=== PATIENT | male | born 1970 | race Caucasian/White ===

== ENCOUNTER → 2023-11-14 07:09 | Outpatient (CLI) | payer OTHER, SELFPAY ==
[2023-11-14 07:51] LABS: Add Manual Diff / Slide Review NO; Basophils Absolute Auto 0 /uL (0-100); Basophils Percent Auto 0.9 % (0-2); Eosinophils Absolute Auto 100 /uL (0-450); Eosinophils Percent Auto 2.3 % (2-4); Hematocrit 42.8 % (41-53); Hemoglobin 14.9 g/dL (13.5-17.5); Lymphocytes Absolute Auto 1300 /uL (1100-4500); Lymphocytes Percent Auto 34.6 % (25-40); Mean Corpuscular HGB Conc 34.9 % (30-36); Mean Corpuscular Hemoglobin 32.6 PG (26-34); Mean Corpuscular Volume 93.4 fL (80-100); Monocytes Absolute Auto 400 /uL (0-900); Monocytes Percent Auto 10.8 % (3-14); Neutrophils Absolute Auto 2000 /uL (1500-7000); Neutrophils Percent Auto 51.4 % (50-75); Platelet Count 182 X10^3/uL (150-400); Red Blood Cell Count 4.58 X10^6/uL (4.5-5.9); Red Cell Distribution Width 12.2 % (11.6-14.8); White Blood Cell Count 3.8 X10^3/uL (4.5-11.0)
[2023-11-14 08:26] LABS: Alanine Aminotransferase 26 IU/L (<50); Albumin 4.1 g/dL (3.5-5.0); Albumin Globulin Ratio 1.4 (1.0-2.8); Alkaline Phosphatase 43 U/L (38-126); Aspartate Aminotransferase 32 IU/L (17-59); BUN Creatinine Ratio 18.4 (6-22); Blood Urea Nitrogen 21 mg/dL (9-20); Calcium 9.2 mg/dL (8.4-10.2); Carbon Dioxide 28 mmol/L (22-32); Chloride 103 mmol/L (98-107); Cholesterol 172 mg/dL (140-199); Estimated Glomerular Filt Rate > 60 mL/min (>60); Glucose 94 mg/dL (70-100); HDL Cholesterol 47 mg/dL (40-60); HEMOLYSIS < 15 (0-50); LDL Cholesterol Calculated 107 mg/dL (<100); Potassium 4.2 mmol/L (3.4-5.1); Sodium 140 mmol/L (137-145); Total Protein 7.1 g/dL (6.3-8.2); Triglycerides 90 mg/dL (35-150)
[2023-11-14 08:50] LABS: Prostate Specific Antigen 0.623 ng/mL (0.10-4.00)
== END ==
LOC: LAB 07:12
PROVIDERS: PCP Family Medicine Sports Medicine; Referring Provider Family Medicine Sports Medicine; Visit Provider Family Medicine Sports Medicine
DX: Z00.00 Encounter for general adult medical examination without abnormal findings (principal); Z13.6 Encounter for screening for cardiovascular disorders; Z12.5 Encounter for screening for malignant neoplasm of prostate
CPT/HCPCS: 36415; 80053; 80061; 84153; 85025

== ENCOUNTER 2024-04-14 07:30 | Outpatient (RCR) | payer OTHER, SELFPAY ==
--- NOTE | 2024-03-31 10:19 | PT.OIE ---
Current Diagnoses Benign paroxysmal vertigo, unspecified ear (03/31/24) Visit Care Team Role Provider Type Johny Reddy MD Family Provider Non-Staff Primary Care Provider Specialty: Family Practice Address: [address], [place], [address] Email: Roz Ramírez MD Attending Provider Non-Staff Referring Provider Specialty: [facility] Practice Address: [address], [place], [address] Email: Physical Therapy Initial Evaluation PT-OP-A Visit Information Start: 03/22/24 08:09 Freq: Status: Active Protocol: Document 03/31/24 09:01 MB (Rec: 03/31/24 10:18 MB [id number]) Out-Patient Physical Therapy Visit Information Visit Information Visit Type Initial Evaluation Visit Note [employer] Progress note before 05/01 Visit Start Time 09:01 Visit Stop Time 09:56 Visit Number 1 Evaluation Information Evaluation Date 03/31/24 PT-OP-B Current Condition Start: 03/22/24 08:09 Freq: Status: Active Protocol: Document 03/31/24 09:01 MB (Rec: 03/31/24 10:18 [id number]) Current Condition History of Current Condition Onset Date 04/2023 Current Complaints Light-headedness when looking up and looking up to the right History of Current Condition Last April 2023, pt had a root canal bottom right molar and then they put in a crown October 2023. After the crown , he was walking after the procedure and almost fell to his right, he was so dizzy. He had no pain at the time. He had what he was told was BPPV and he went to urgent care and was given a handout for exercise. He had severe dizziness rolling to the right for a while. He did self- Kristen for the right ear. Now, he gets light-headedness when looking up and up and to the right. Getting up quickly off the couch and off the bed require him to get his bearings. He has not had any other episodes of imbalance. Pt lifts weights. When he goes to lie down to lift, he gets initial dizziness with lying flat. Pt denies: numbness/tingling, vision changes, ear pressure, history of concussion, anemia, weakness, hearing change, sinus/allergy issues, trouble swallowing, B12 deficiency, eye pressure changes, roaring or ringing in the ears, history of whiplash, TMJ problems, headache Pt reports: performance of sit -ups, overhead lifting, vitamin D3, chiropractor treatment for lumbar spine in 2020 and history of LB spasming Pt reports neck stiffness in the morning. Pt sleeps on his right side. Pt sleeps in jesus manuel bed with and kid comes in the bed. Pt reports left nostril feels clogged Treatment Goals Patient/Caregiver Goals To eliminate dizziness and light-headedness when looking up to the right PT-OP-C Subjective Start: 03/22/24 08:09 Freq: Status: Active Protocol: Document 03/31/24 09:01 MB (Rec: 03/31/24 10:18 MB [id number]) OP-PT Subjective Patient Comments Patient Comments See history of current condition Patient Questionnaires Dizziness Handicap Inventory DHI Score 22 DHI Functional Impairment 20 to 39% Impaired (Score 20- 39) Other Questionnaire Name and Score FES score is 6/64, low risk for falling but concerns with tasks related to dizziness ( overhead reach and getting out of chair), so may set goal PT-OP-J Posture/Palpation/Skin Start: 03/22/24 08:09 Freq: Status: Active Protocol: Document 03/31/24 09:01 MB (Rec: 03/31/24 10:18 MB [id number]) Posture Evaluation Comments Posture Comments TMJ opening with more tissue pressure to palpation on left with depression than the right , left C1-2 tight and loosens with minimal manual work, B SCM tension more on the left. Pt is right handed, left posterior cervical tissue is more pronounced than the right PT-OP-K Range of Motion Start: 03/22/24 08:09 Freq: Status: Active Protocol: Document 03/31/24 09:01 MB (Rec: 03/31/24 10:18 MB [id number]) Cervical Spine Range of Motion Cervical Spine Active Testing Position Sitting Flexion 40 Extension 20 Rotation Left 70 Rotation Right 60 ROM Limitations Soft Tissue Tightness PT-OP-M Strength Start: 03/22/24 08:09 Freq: Status: Active Protocol: Document 03/31/24 09:01 MB (Rec: 03/31/24 10:18 [id number]) Shoulder Strength Shoulder Manual Muscle Testing Left Flexion 5 Normal Abduction (C5) 5 Normal Right Flexion 5 Normal Abduction (C5) 5 Normal PT-OP-O Vestibular Start: 03/22/24 08:09 Freq: Status: Active Protocol: Document 03/31/24 09:01 MB (Rec: 03/31/24 10:18 [id number]) Vestibular Assessment Visual Testing Spontaneous Nystagmus Negative Positional Testing [place]-Hallpike Positive Right,Upbeating,< 60 Seconds Comments Vestibular Comments Orthostatic assessment: supine 166/91, 65; standing 132/78, 68; standing 1' 158/69, 63. Upon standing, little spinning dizziness PT-OP-Q Treatments Start: 03/22/24 08:09 Freq: Status: Active Protocol: Document 03/31/24 09:01 MB (Rec: 03/31/24 10:18 [id number]) Neuro Re-Education Treatment Other Activities BPPV assess and treat Comments Right [place]-Hallpike x2 and modified Kristen treatment x2 and dizziness and nystagmus resolved Self-Care/Home Management Treatment Education Patient Education Body Mechanics,Home Exercise Program,Joint Protection, Posture Other Education Ed pt on benefits of making fluids count, decreasing caffeine and increasing non- caffeinated fluid intake, consider electrolytes, proper sleeping position to help with neck tension, BPPV and cervicogenic dizziness handouts, education on how to get on weight bench and perform sit-ups with better awareness of core and less tension in SCM PT-OP-T Assessment and Plan Start: 03/22/24 08:09 Freq: Status: Active Protocol: Document 03/31/24 09:01 MB (Rec: 03/31/24 10:18 [id number]) Physical Therapy Assessment Rehab Potential Rehabilitation Potential Excellent Evaluation Complexity Number of Personal Factors/Comorbidities 1-2 Number of Body Systems Impaired 1-2 Clinical Presentation at Evaluation Evolving Impairments Impairments Balance,Posture,ROM,Soft Tissue Mobility,Vestibular Goals 4 Impairment Evidence of imbalance Review Coordinator Goal (LTG) Pt will perform WNLs on FGA to improve functional balance with exercise and daily life. LTG Duration 5 weeks 3 Impairment Lack of HEP Halfway Goal (LTG) Pt will perform progressive HEP with I including breathing , postural, flexibility, balance and VOR exercises to improve cervical ROM and posture to improve symptoms. LTG Duration 5 weeks 2 Impairment FES 6/64 Halfway Goal (LTG) Pt presents fairly concerned about falling with getting in and out of a chair and reaching overhead and he will report no concern of these after PT treatment to improve functional balance. LTG Duration 5 weeks 1 Impairment DHI 22/100 Review Coordinator Goal (LTG) Pt will present with DHI score of no more than 5/100, reflecting less experience of dizziness and improved function and quality of life. LTG Duration 5 weeks Assessment Summary Assessment Pt is a gentleman presenting with reports of positional vertigo symptoms since dental procedure in October. He went to urgent care and was given handout and performed self- Kristen for right side at home. Spinning dizziness with rolling is better and he con't with dizziness looking up and looking up to the right, as well as when getting up quickly. Orthostatics are positive and BP is high and discussed hydration and less caffeine with patient. Positive [place]-Hallpike for right posterior canalithiasis BPPV and treated with modified Kristen this date and dizziness and nystagmus resolve when re -checked. Pt has postural changes including increased tension left SCM and posterior cervical muscles as well as reduced cervical rotation to the right. He will benefit from manual work and postural training and exercises to improve posture, neck position and in turn, inner ear mobility. VOR is not a primary concern but will check it and balance as needed. Physical Therapy Plan Frequency and Duration Frequency of Treatment 3-4 treatments Duration of treatment (weeks) 5 Plan of Care Start Date 03/31/24 Plan of Care End Date 05/05/24 Therapeutic Interventions Therapeutic Interventions Balance Training,Canalithic Repositioning,Home Exercise Program,Joint Mobilizations, Manual Therapy,Neuromuscular Re-education,Patient/Caregiver Education,Self-Care/Home Management,Soft Tissue Mobilization,Taping, Therapeutic Activities, Therapeutic Exercises, Vestibular Rehabilitation Modalities Cold Pack/Ice Massage Next Visit Focus/Plan Next Note Type Treatment Note Next Visit Plan Buteyko breathing for clogged left nostril, consider FGA and DVA testing, manual work including SCM work and self- treatment, pect and anterior thoracic stretching, thoracic mobility
--- NOTE | 2024-03-31 10:20 | PT.OPPOC ---
Physical, Occupational & Speech Therapy At [facility] Current Diagnoses Benign paroxysmal vertigo, unspecified ear (03/31/24) Visit Care Team Role Provider Type Johny Reddy MD Family Provider Non-Staff Primary Care Provider Specialty: Family Practice Address: [address], [place], [address] Email: Roz Ramírez MD Attending Provider Non-Staff Referring Provider Specialty: [facility] Practice Address: [address], [place], [address] Email: Plan Of Care PT-OP-T Assessment and Plan Start: 03/22/24 08:09 Freq: Status: Active Protocol: Document 03/31/24 09:01 MB (Rec: 03/31/24 10:18 MB [id number]) Physical Therapy Assessment Rehab Potential Rehabilitation Potential Excellent Evaluation Complexity Number of Personal Factors/Comorbidities 1-2 Number of Body Systems Impaired 1-2 Clinical Presentation at Evaluation Evolving Impairments Impairments Balance,Posture,ROM,Soft Tissue Mobility,Vestibular Goals 4 Impairment Evidence of imbalance Usp Goal (LTG) Pt will perform WNLs on FGA to improve functional balance with exercise and daily life. LTG Duration 5 weeks 3 Impairment Lack of HEP Interpreter Translator Goal (LTG) Pt will perform progressive HEP with I including breathing , postural, flexibility, balance and VOR exercises to improve cervical ROM and posture to improve symptoms. LTG Duration 5 weeks 2 Impairment FES 6/64 Interpreter Translator Goal (LTG) Pt presents fairly concerned about falling with getting in and out of a chair and reaching overhead and he will report no concern of these after PT treatment to improve functional balance. LTG Duration 5 weeks 1 Impairment DHI 22/100 Usp Goal (LTG) Pt will present with DHI score of no more than 5/100, reflecting less experience of dizziness and improved function and quality of life. LTG Duration 5 weeks Assessment Summary Assessment Pt is a gentleman presenting with reports of positional vertigo symptoms since dental procedure in October. He went to urgent care and was given handout and performed self- Kristen for right side at home. Spinning dizziness with rolling is better and he con't with dizziness looking up and looking up to the right, as well as when getting up quickly. Orthostatics are positive and BP is high and discussed hydration and less caffeine with patient. Positive [place]-Hallpike for right posterior canalithiasis BPPV and treated with modified Kristen this date and dizziness and nystagmus resolve when re -checked. Pt has postural changes including increased tension left SCM and posterior cervical muscles as well as reduced cervical rotation to the right. He will benefit from manual work and postural training and exercises to improve posture, neck position and in turn, inner ear mobility. VOR is not a primary concern but will check it and balance as needed. Physical Therapy Plan Frequency and Duration Frequency of Treatment 3-4 treatments Duration of treatment (weeks) 5 Plan of Care Start Date 03/31/24 Plan of Care End Date 05/05/24 Therapeutic Interventions Therapeutic Interventions Balance Training,Canalithic Repositioning,Home Exercise Program,Joint Mobilizations, Manual Therapy,Neuromuscular Re-education,Patient/Caregiver Education,Self-Care/Home Management,Soft Tissue Mobilization,Taping, Therapeutic Activities, Therapeutic Exercises, Vestibular Rehabilitation Modalities Cold Pack/Ice Massage Next Visit Focus/Plan Next Note Type Treatment Note Next Visit Plan Buteyko breathing for clogged left nostril, consider FGA and DVA testing, manual work including SCM work and self- treatment, pect and anterior thoracic stretching, thoracic mobility Plan of Care Dates Plan of Care Start Date 03/31/24 Plan of Care End Date 05/05/24 Electronically Signed by: Lucia Maldonado PT 03/31/24 1020 If you are in agreement with this Plan of Care, please return a signed and dated copy. I have reviewed this Plan of Care and certify that the skilled therapy services above are required to meet the patient?s needs. Physician Signature Date Printed Name and Credentials Clinical Instructor Signature Printed Name and Credentials
--- NOTE | 2024-04-07 09:46 | PT.OTN ---
Current Diagnoses Benign paroxysmal vertigo, unspecified ear (04/07/24) Physical Therapy Treatment Note PT-OP-A Visit Information Start: 03/22/24 08:09 Freq: Status: Active Protocol: Document 04/07/24 09:01 MB (Rec: 04/07/24 09:45 MB [id number]) Out-Patient Physical Therapy Visit Information Visit Information Visit Type Treatment Note Visit Note [employer] Progress note before 05/01 Visit Start Time 09:01 Visit Stop Time 09:41 Visit Number 2 Number of CONGRESSIONAL AIDE Visits 0 Evaluation Information Evaluation Date 03/31/24 PT-OP-B Current Condition Start: 03/22/24 08:09 Freq: Status: Active Protocol: Document 03/31/24 09:01 MB (Rec: 03/31/24 10:18 MB [id number]) Current Condition History of Current Condition Onset Date 04/2023 Current Complaints Light-headedness when looking up and looking up to the right History of Current Condition Last April 2023, pt had a root canal bottom right molar and then they put in a crown October 2023. After the crown , he was walking after the procedure and almost fell to his right, he was so dizzy. He had no pain at the time. He had what he was told was BPPV and he went to urgent care and was given a handout for exercise. He had severe dizziness rolling to the right for a while. He did self- Kristen for the right ear. Now, he gets light-headedness when looking up and up and to the right. Getting up quickly off the couch and off the bed require him to get his bearings. He has not had any other episodes of imbalance. Pt lifts weights. When he goes to lie down to lift, he gets initial dizziness with lying flat. Pt denies: numbness/tingling, vision changes, ear pressure, history of concussion, anemia, weakness, hearing change, sinus/allergy issues, trouble swallowing, B12 deficiency, eye pressure changes, roaring or ringing in the ears, history of whiplash, TMJ problems, headache Pt reports: performance of sit -ups, overhead lifting, vitamin D3, chiropractor treatment for lumbar spine in 2020 and history of LB spasming Pt reports neck stiffness in the morning. Pt sleeps on his right side. Pt sleeps in jesus manuel bed with and kid comes in the bed. Pt reports left nostril feels clogged Treatment Goals Patient/Caregiver Goals To eliminate dizziness and light-headedness when looking up to the right PT-OP-C Subjective Start: 03/22/24 08:09 Freq: Status: Active Protocol: Document 04/07/24 09:01 MB (Rec: 04/07/24 09:45 MB [id number]) OP-PT Subjective Patient Comments Patient Comments Pt has slept really well in the last week. He has added 60 -80 oz of water a day. He got a cervical pillow with a cooling effect. He does not have any more dizziness. His neck feels better. PT-OP-J Posture/Palpation/Skin Start: 03/22/24 08:09 Freq: Status: Active Protocol: Document 03/31/24 09:01 MB (Rec: 03/31/24 10:18 MB [id number]) Posture Evaluation Comments Posture Comments TMJ opening with more tissue pressure to palpation on left with depression than the right , left C1-2 tight and loosens with minimal manual work, B SCM tension more on the left. Pt is right handed, left posterior cervical tissue is more pronounced than the right PT-OP-K Range of Motion Start: 03/22/24 08:09 Freq: Status: Active Protocol: Document 03/31/24 09:01 MB (Rec: 03/31/24 10:18 MB [id number]) Cervical Spine Range of Motion Cervical Spine Active Testing Position Sitting Flexion 40 Extension 20 Rotation Left 70 Rotation Right 60 ROM Limitations Soft Tissue Tightness PT-OP-M Strength Start: 03/22/24 08:09 Freq: Status: Active Protocol: Document 03/31/24 09:01 MB (Rec: 03/31/24 10:18 MB [id number]) Shoulder Strength Shoulder Manual Muscle Testing Left Flexion 5 Normal Abduction (C5) 5 Normal Right Flexion 5 Normal Abduction (C5) 5 Normal PT-OP-O Vestibular Start: 03/22/24 08:09 Freq: Status: Active Protocol: Document 03/31/24 09:01 MB (Rec: 03/31/24 10:18 MB [id number]) Vestibular Assessment Visual Testing Spontaneous Nystagmus Negative Positional Testing [place]-Hallpike Positive Right,Upbeating,< 60 Seconds Comments Vestibular Comments Orthostatic assessment: supine 166/91, 65; standing 132/78, 68; standing 1' 158/69, 63. Upon standing, little spinning dizziness PT-OP-Q Treatments Start: 03/22/24 08:09 Freq: Status: Active Protocol: Document 04/07/24 09:01 MB (Rec: 04/07/24 09:45 MB [id number]) Therapeutic Exercises Sitting Exercises Buteyko breathing for blocked nostril Sitting Exercise Name Tried on right nostril and not very helpful Comments Nose appears deviated to the left, pt reports right stuffy nostril Buteyko breathing for stuffy sinuses Comments Performed in sitting today and breathing sounds slightly softer afterwards Standing Exercises Upper cervical isometric Comments Pt tight to the right today and performed and range better afterwards Neuro Re-Education Treatment Other Activities SLS Comments 30 sec on left leg; 1' on right leg and added to HEP Balance activities for gym Comments Slide finger along wall and perform 20' of horizontal head turns x2 and 20' of vertical head turns x2 FGA Comments FGA score is normal at 28/30 and some mild change in balance with horizontal and vertical head turns PT-OP-T Assessment and Plan Start: 03/22/24 08:09 Freq: Status: Active Protocol: Document 04/07/24 09:01 MB (Rec: 04/07/24 09:45 MB [id number]) Physical Therapy Assessment Rehab Potential Rehabilitation Potential Excellent Evaluation Complexity Number of Personal Factors/Comorbidities 1-2 Number of Body Systems Impaired 1-2 Clinical Presentation at Evaluation Evolving Impairments Impairments Balance,Posture,ROM,Soft Tissue Mobility,Vestibular Goals 4 Impairment Evidence of imbalance Churn Operator Margarine Goal (LTG) Pt will perform WNLs on FGA to improve functional balance with exercise and daily life. LTG Duration 5 weeks 3 Impairment Lack of HEP [facility] Goal (LTG) Pt will perform progressive HEP with I including breathing , postural, flexibility, balance and VOR exercises to improve cervical ROM and posture to improve symptoms. LTG Duration 5 weeks 2 Impairment FES 6/64 [facility] Goal (LTG) Pt presents fairly concerned about falling with getting in and out of a chair and reaching overhead and he will report no concern of these after PT treatment to improve functional balance. LTG Duration 5 weeks 1 Impairment DHI 22/100 [facility] Goal (LTG) Pt will present with DHI score of no more than 5/100, reflecting less experience of dizziness and improved function and quality of life. LTG Duration 5 weeks Assessment Summary Assessment Neck range and symptoms are better. Pt appears to have nasal breathing challenges that may be structural. Initiated training today and will see if breathing improves , also added cervical and balance exercises. Physical Therapy Plan Frequency and Duration Frequency of Treatment 3-4 treatments Duration of treatment (weeks) 5 Plan of Care Start Date 03/31/24 Plan of Care End Date 05/05/24 Therapeutic Interventions Therapeutic Interventions Balance Training,Canalithic Repositioning,Home Exercise Program,Joint Mobilizations, Manual Therapy,Neuromuscular Re-education,Patient/Caregiver Education,Self-Care/Home Management,Soft Tissue Mobilization,Taping, Therapeutic Activities, Therapeutic Exercises, Vestibular Rehabilitation Modalities Cold Pack/Ice Massage Next Visit Focus/Plan Next Note Type Treatment Note Next Visit Plan DVA testing, manual work including SCM work and self- treatment, pect and anterior thoracic stretching, thoracic mobility
--- NOTE | 2024-04-14 08:17 | PT.OTN ---
Current Diagnoses Benign paroxysmal vertigo, unspecified ear (04/14/24) Physical Therapy Treatment Note PT-OP-A Visit Information Start: 03/22/24 08:09 Freq: Status: Active Protocol: Document 04/14/24 07:32 MB (Rec: 04/14/24 08:17 MB [id number]) Out-Patient Physical Therapy Visit Information Visit Information Visit Type Treatment Note Visit Note [employer] Visit Start Time 07:32 Visit Stop Time 08:15 Visit Number 43 Number of ECONOMICS TEACHER Visits 0 Evaluation Information Evaluation Date 03/31/24 PT-OP-B Current Condition Start: 03/22/24 08:09 Freq: Status: Active Protocol: Document 03/31/24 09:01 MB (Rec: 03/31/24 10:18 MB [id number]) Current Condition History of Current Condition Onset Date 04/2023 Current Complaints Light-headedness when looking up and looking up to the right History of Current Condition Last April 2023, pt had a root canal bottom right molar and then they put in a crown October 2023. After the crown , he was walking after the procedure and almost fell to his right, he was so dizzy. He had no pain at the time. He had what he was told was BPPV and he went to urgent care and was given a handout for exercise. He had severe dizziness rolling to the right for a while. He did self- Kristen for the right ear. Now, he gets light-headedness when looking up and up and to the right. Getting up quickly off the couch and off the bed require him to get his bearings. He has not had any other episodes of imbalance. Pt lifts weights. When he goes to lie down to lift, he gets initial dizziness with lying flat. Pt denies: numbness/tingling, vision changes, ear pressure, history of concussion, anemia, weakness, hearing change, sinus/allergy issues, trouble swallowing, B12 deficiency, eye pressure changes, roaring or ringing in the ears, history of whiplash, TMJ problems, headache Pt reports: performance of sit -ups, overhead lifting, vitamin D3, chiropractor treatment for lumbar spine in 2020 and history of LB spasming Pt reports neck stiffness in the morning. Pt sleeps on his right side. Pt sleeps in jesus manuel bed with and kid comes in the bed. Pt reports left nostril feels clogged Treatment Goals Patient/Caregiver Goals To eliminate dizziness and light-headedness when looking up to the right PT-OP-C Subjective Start: 03/22/24 08:09 Freq: Status: Active Protocol: Document 04/14/24 07:32 MB (Rec: 04/14/24 08:17 MB [id number]) OP-PT Subjective Patient Comments Patient Comments Pt states that he can tell sleeping out of town and the difference with the pillow. PT-OP-J Posture/Palpation/Skin Start: 03/22/24 08:09 Freq: Status: Active Protocol: Document 03/31/24 09:01 MB (Rec: 03/31/24 10:18 MB [id number]) Posture Evaluation Comments Posture Comments TMJ opening with more tissue pressure to palpation on left with depression than the right , left C1-2 tight and loosens with minimal manual work, B SCM tension more on the left. Pt is right handed, left posterior cervical tissue is more pronounced than the right PT-OP-K Range of Motion Start: 03/22/24 08:09 Freq: Status: Active Protocol: Document 03/31/24 09:01 MB (Rec: 03/31/24 10:18 MB [id number]) Cervical Spine Range of Motion Cervical Spine Active Testing Position Sitting Flexion 40 Extension 20 Rotation Left 70 Rotation Right 60 ROM Limitations Soft Tissue Tightness PT-OP-M Strength Start: 03/22/24 08:09 Freq: Status: Active Protocol: Document 03/31/24 09:01 MB (Rec: 03/31/24 10:18 MB [id number]) Shoulder Strength Shoulder Manual Muscle Testing Left Flexion 5 Normal Abduction (C5) 5 Normal Right Flexion 5 Normal Abduction (C5) 5 Normal PT-OP-O Vestibular Start: 03/22/24 08:09 Freq: Status: Active Protocol: Document 03/31/24 09:01 MB (Rec: 03/31/24 10:18 MB [id number]) Vestibular Assessment Visual Testing Spontaneous Nystagmus Negative Positional Testing Helen-Hallpike Positive Right,Upbeating,< 60 Seconds Comments Vestibular Comments Orthostatic assessment: supine 166/91, 65; standing 132/78, 68; standing 1' 158/69, 63. Upon standing, little spinning dizziness PT-OP-Q Treatments Start: 03/22/24 08:09 Freq: Status: Active Protocol: Document 04/14/24 07:32 MB (Rec: 04/14/24 08:17 MB [id number]) Therapeutic Exercises Supine Exercises Foam roller Supine Exercise Name Many minutes and training with this Comments Thoracic stretching with arms overhead, pect stretch and thoracic mobs Sidelying Exercises Open book Comments B many reps Standing Exercises Anterior neck stretch Comments Gentle stretch Neuro Re-Education Treatment Balance Activities FGA Comments FGA score is 30/30 Vestibular Rehabilitation DVA Comments Focus on letter E second from bottom and performed horizontal head turns with feet apart, Romberg, tandem and tandem with right foot behind is challenging. Performed several minutes to figure out the best exercise for home. Vertical head turns much easier and performed in Romberg, tandem and more challenging with right foot behind PT-OP-T Assessment and Plan Start: 03/22/24 08:09 Freq: Status: Active Protocol: Document 04/14/24 07:32 MB (Rec: 04/14/24 08:17 MB [id number]) Physical Therapy Assessment Rehab Potential Rehabilitation Potential Excellent Evaluation Complexity Number of Personal Factors/Comorbidities 1-2 Number of Body Systems Impaired 1-2 Clinical Presentation at Evaluation Evolving Impairments Impairments Balance,Posture,ROM,Soft Tissue Mobility,Vestibular Goals 4 Impairment Evidence of imbalance Detention Goal (LTG) Pt will perform WNLs on FGA to improve functional balance with exercise and daily life. 04/14/24: FGA score is 30/30 LTG Duration Met 3 Impairment Lack of HEP Detention Goal (LTG) Pt will perform progressive HEP with I including breathing , postural, flexibility, balance and VOR exercises to improve cervical ROM and posture to improve symptoms. 04/14/24: Pt has thoracic mobility, cervical and DVA exercises LTG Duration Met 2 Impairment FES Food Runner Goal (LTG) Pt presents fairly concerned about falling with getting in and out of a chair and reaching overhead and he will report no concern of these after PT treatment to improve functional balance. 04/14/24: Pt no longer has any concerns of falling with any question on questionnaire. LTG Duration Met 1 Impairment DHI 22/100 Detention Goal (LTG) Pt will present with DHI score of no more than 5/100, reflecting less experience of dizziness and improved function and quality of life. 04/14/24: DHI score is 0, surpassed goal LTG Duration Met Assessment Summary Assessment Pt has met or surpassed all PT goals and is ready for d/c. Physical Therapy Plan Frequency and Duration Frequency of Treatment 3-4 treatments Duration of treatment (weeks) 5 Plan of Care Start Date 03/31/24 Plan of Care End Date 05/05/24 Therapeutic Interventions Therapeutic Interventions Balance Training,Canalithic Repositioning,Home Exercise Program,Joint Mobilizations, Manual Therapy,Neuromuscular Re-education,Patient/Caregiver Education,Self-Care/Home Management,Soft Tissue Mobilization,Taping, Therapeutic Activities, Therapeutic Exercises, Vestibular Rehabilitation Modalities Cold Pack/Ice Massage
== END 2024-05-01 09:34 ==
LOC: PHYS 07:30
PROVIDERS: Family Provider Family Medicine Sports Medicine; PCP Family Medicine Sports Medicine; Referring Provider Family Medicine; Visit Provider Family Medicine
DX: H81.10 Benign paroxysmal vertigo, unspecified ear (principal)
CPT/HCPCS: 95992; 97110; 97112; 97162; 97535

== ENCOUNTER → 2024-06-11 11:53 | Outpatient (CLI) | payer OTHER, SELFPAY ==
--- NOTE | 2024-06-11 11:53 | DI.US.S_ITS ---
PROCEDURE: US THYROID INDICATIONS: GLOBUS SENSATION,HOARSENESS,ENLARGED THYROID TECHNIQUE: Real-time scanning was performed of the thyroid gland, with image documentation. COMPARISON: None. FINDINGS: Thyroid: Right lobe measures 6.5 x 3.4 x 2.3 cm. Left lobe measures 6.5 x 3.6 x 2.3 cm. Isthmus is 0.6 cm thick. Echotexture is heterogeneous. Multiple prominent lymph nodes are seen in bilateral neck soft tissue and in midline superior to the thyroid gland measures up to 6 mm in in size. No discrete thyroid nodule is noted. IMPRESSION: 1. Enlarged thyroid gland with heterogeneous thyroid parenchymal echotexture. No discrete thyroid nodule is seen. 2. Nonspecific mildly prominent bilateral neck soft tissue lymph nodes measures up to 6 mm in size. ACR TI-RADS definitions and recommendations: TI-RADS 1 (benign): 0 points. FNA not needed. TI-RADS 2 (not suspicious): 2 points. FNA not needed. TI-RADS 3 (mildly suspicious): 3 points. * FNA if 2.5 cm or larger, follow up if 1.5 cm or larger (at 1, 3, and 5 years). TI-RADS 4 (moderately suspicious): 4-6 points. * FNA if 1.5 cm or larger, follow up if 1 cm or larger (at 1, 2, 3, and 5 years). TI-RADS 5 (highly suspicious): 7 points or more. * FNA if 1 cm or larger, follow up if 0.5 cm or larger (every year for 5 years). Dictated by: Miah Faith M.D. on 06/11/2024 at 21:50 Approved by: Miah Faith M.D. on 06/11/2024 at 21:52
== END ==
LOC: US 11:53
PROVIDERS: Family Provider Family Medicine Sports Medicine; PCP Family Medicine Sports Medicine; Referring Provider Otolaryngology; Visit Provider Otolaryngology
DX: R09.A2 Foreign body sensation, throat (principal); R49.0 Dysphonia; E04.9 Nontoxic goiter, unspecified
CPT/HCPCS: 76536

== ENCOUNTER → 2024-11-09 11:31 | Outpatient (CLI) | payer OTHER, SELFPAY ==
[2024-11-09 18:06] LABS: Influenza A - CEPHEID Flu A POSITIVE (NEGATIVE); Influenza B - CEPHEID Flu B NEGATIVE (NEGATIVE); Respiratory Syncytial Virus Negative (Negative)
[2024-11-09 18:10] LABS: COVID-19 CEPHEID 4-PLEX PCR Negative (Negative)
== END ==
PROVIDERS: Family Provider Family Medicine Sports Medicine; PCP Family Medicine Sports Medicine; Visit Provider Nurse Practitioner Family
DX: J02.9 Acute pharyngitis, unspecified (principal); R05.9 Cough, unspecified
CPT/HCPCS: 0241U; 87070

== ENCOUNTER → 2024-11-09 11:47 | Outpatient (CLI) | payer OTHER, SELFPAY ==
--- NOTE | 2024-11-09 11:48 | DI.RAD.S_ITS ---
PROCEDURE: XR CHEST 2V INDICATIONS: Cough TECHNIQUE: 2 views of the chest were acquired. COMPARISON: None. FINDINGS: Surgical changes and devices: None. Lungs and pleura: Lung volumes are low. Lungs are clear. No pleural effusions or pneumothorax. Mediastinum: Mediastinal contours are normal. Heart size is normal. Bones and chest wall: No suspicious bony abnormalities. Soft tissues appear unremarkable. IMPRESSION: No source for cough identified radiographically. Dictated by: Fernando Mtz RR Interpreted: Italo Angulo MD on 11/09/2024 at 12:34 Transcribed by: UMESH on 11/09/2024 at 12:34 Approved by: Italo Angulo M.D. on 11/10/2024 at 7:58
== END ==
PROVIDERS: Family Provider Family Medicine Sports Medicine; PCP Family Medicine Sports Medicine; Referring Provider Nurse Practitioner Family; Visit Provider Nurse Practitioner Family
DX: J02.9 Acute pharyngitis, unspecified (principal); R05.9 Cough, unspecified
CPT/HCPCS: 0241U; 71046; 87070